=== PATIENT | male | born 1995 | race Caucasian/White ===

== ENCOUNTER 2019-09-10 00:19 | Emergency (ER) | payer OTHER ==
[~2019-09-10] VITALS: Ht 165.1 cm; Wt 64.4 kg
[2019-09-10 00:28] VITALS: BP_SYST 124; BP_SYST 154; BP_DIAS 80
[2019-09-10] MEDS ORDERED: CIPROFLOXACIN 250 MG TAB PO ONE (00:50)
[2019-09-10] MEDS ORDERED: IBUPROFEN 600 MG TAB PO ONE (00:50)
[2019-09-10 01:12] VITALS: BP 124/80
== END 2019-09-10 01:12 | disposition home or self-care (01) ==
LOC: MED 00:19
DX: N45.1 Epididymitis (principal)
CPT/HCPCS: 81002; 99283

== ENCOUNTER 2023-03-01 20:26 | Emergency (ER) | payer OTHER ==
[~2023-03-01] VITALS: Ht 165.1 cm; Wt 70.8 kg
[2023-03-01 20:30] VITALS: BP 140/98; PULSE 61; RESP 17; TEMP 98; O2SAT 100
[2023-03-01 21:30] VITALS: O2SAT 100
[2023-03-01] MEDS ORDERED: PRED20TA5 PO (21:49)
== END 2023-03-01 21:52 | disposition home or self-care (01) ==
LOC: MED 20:26
DX: G51.0 Bell's palsy (principal); Z79.899 Other long term (current) drug therapy
CPT/HCPCS: 82948; 99283